=== PATIENT | male | born 2000 | race Hispanic/Latino ===

== ENCOUNTER 2020-12-17 08:50 | Emergency (ER) | payer OTHER ==
[~2020-12-17] VITALS: Ht 177.8 cm; Wt 83.9 kg
[2020-12-17] MEDS ORDERED: KETOROLAC TROMETHAMINE 30 MG/ML VIAL IV STA (09:16)
[2020-12-17] MEDS ORDERED: NAPROSYN500 MG PO (10:09)
[2020-12-17] MEDS ORDERED: KETOROLAC TROMETHAMINE 30 MG/ML VIAL ONE (10:16)
[2020-12-17 10:32] VITALS: BP 132/81
== END 2020-12-17 10:32 | disposition home or self-care (01) ==
LOC: FSED 09:09
DX: R07.89 Other chest pain (principal); R09.1 Pleurisy
CPT/HCPCS: 71046; 80048; 82553; 84484; 85025; 93005; 99283; J1885